=== PATIENT | male | born 1995 | race Caucasian/White ===

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

== ENCOUNTER 2017-04-21 21:15 | Emergency (ER) | payer BC, OTHER ==
[2017-04-21] MEDS ORDERED: Ibuprofen TAB* 600 MG PO ONE (21:28)
--- NOTE | 2017-04-21 21:34 | UC ---
Hip/Pelvis Pain - HPI Summary HPI Summary: 21 yo male injured left hip today around 1 pm doing a flip snow boarding marked pain with wt bearing denies other injury - History Of Current Complaint Chief Complaint: UCLowerExtremity Stated Complaint: HIP INJURY Time Seen by Provider: 04/21/17 21:22 Hx Obtained From: Patient Onset/Duration: Sudden Onset, Lasting Hours Timing: Constant Severity Initially: Moderate Severity Currently: Severe Pain Intensity: 10 Pain Scale Used: 0-10 Numeric Location: Discrete At: Character Of Pain: Aching, Throbbing, Spasmodic Aggravating Factor(s): Movement, Weight Bearing Alleviating Factor(s): Nothing Associated Signs And Symptoms: Positive: Negative - Allergies/Home Medications Allergies/Adverse Reactions: Allergies Allergy/AdvReac Type Severity Reaction Status Date / Time No Known Allergies Allergy Verified 04/21/17 21:23 Home Medications: Home Medications NK [No Home Medications Reported] 04/21/17 [History Confirmed 04/21/17] PMH/Surg Hx/FS Hx/Imm Hx Previously Healthy: Yes Other History Of: Negative For: Anticoagulant Therapy - Surgical History Surgical History: Yes Surgery Procedure, Year, and Place: Tonsilectomy and Adenoidectomy, Ear tubes for 2 years as a child,CIRCUMCISION. WISDOM TEETH - Family History Known Family History: Positive: Other - mental health/drug dependence Negative: Cardiac Disease, Hypertension, Diabetes - Social History Alcohol Use: Rare Substance Use Type: Marijuana Smoking Status (MU): Never Smoked Tobacco - Immunization History Vaccination Up to Date: Yes Review of Systems Constitutional: Negative Skin: Negative Eyes: Negative ENT: Negative Respiratory: Negative Cardiovascular: Negative Gastrointestinal: Negative Genitourinary: Negative Motor: Negative Neurovascular: Negative Musculoskeletal: Arthralgia, Myalgia Neurological: Negative Psychological: Negative Is Patient Immunocompromised?: No All Other Systems Reviewed And Are Negative: Yes Physical Exam Triage Information Reviewed: Yes Appearance: Well-Appearing, No Pain Distress, Well-Nourished Vital Signs: Initial Vital Signs Temp 97.4 F 04/21/17 21:20 Pulse 90 04/21/17 21:20 Pulse Ox 100 04/21/17 21:20 Vital Signs Reviewed: Yes Eyes: Positive: Conjunctiva Clear ENT: Positive: Hearing grossly normal, Nasal drainage Neck: Positive: Supple, Nontender, No Lymphadenopathy Respiratory: Positive: Chest non-tender, Lungs clear, Normal breath sounds, No respiratory distress, No accessory muscle use Cardiovascular: Positive: RRR, No Murmur Abdomen Description: Positive: Nontender, No Organomegaly, Soft Musculoskeletal: Positive: Other: - see image Neurological: Positive: Alert Psychological Exam: Normal Skin Exam: Normal Diagnostics - Radiology No standard instances Xray Interpretation: No Acute Changes Radiology Interpretation Completed By: Radiologist Hip Injury Course/Dx - Differential Dx/Diagnosis Provider Diagnoses: left hip contusion Discharge - Discharge Plan Condition: Stable Disposition: HOME Patient Education Materials: Hip Pain (ED) Referrals: [facility] [place] [Outside] - As Soon As Possible Additional Instructions: rest ice advil or aleve for pain use your crutches with non wt bearing until rechecked no fracture seen on XR Images Front/Back of Body, Lg ([place]): 1 - tender
[2017-04-21 21:38] VITALS: BP 121/69
--- NOTE | 2017-04-21 22:02 | RAD ---
Indication: Limited movement LEFT leg following snowboard injury. Comparison: April 30, 2016 CT. Technique: Supine AP pelvis and AP and frog-leg lateral views LEFT hip. Report: The LEFT hip is normally located. No LEFT proximal femur or pelvic fracture or pelvic joint diastases. Unremarkable soft tissue contours. IMPRESSION: Negative radiographic exam of the LEFT hip. Correlate with clinical assessment and consider follow-up MRI for further evaluation if deemed appropriate.
== END 2017-04-21 22:09 | disposition home or self-care (01) ==
LOC: UCEAST 21:15
DX: S70.02XA Contusion of left hip, initial encounter (principal); X58.XXXA Exposure to other specified factors, initial encounter; Y93.23 Activity, snow (alpine) (downhill) skiing, snowboarding, sledding, tobogganing and snow tubing; Y92.9 Unspecified place or not applicable; F12.90 Cannabis use, unspecified, uncomplicated
CPT/HCPCS: 99211; A9270-GY; G0463

== ENCOUNTER 2017-07-16 08:49 | Emergency (ER) | payer BC, OTHER ==
[2017-07-16 09:13] VITALS: BP 105/80
--- NOTE | 2017-07-16 10:34 | RAD ---
INDICATION: Right hand injury. TECHNIQUE: 4 views of the right hand were obtained. FINDINGS: The bones are in normal alignment. No fracture is seen. Joint spaces appear maintained. IMPRESSION: NO EVIDENCE FOR FRACTURE, IF THE PATIENT'S SYMPTOMS PERSIST RECOMMEND FOLLOW-UP IMAGING.
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
== END 2017-07-16 11:05 | disposition home or self-care (01) ==
LOC: UCEAST 08:49
DX: S63.91XA Sprain of unspecified part of right wrist and hand, initial encounter (principal); S06.0X9A Concussion with loss of consciousness of unspecified duration, initial encounter; Z72.0 Tobacco use; V44.5XXA Car driver injured in collision with heavy transport vehicle or bus in traffic accident, initial encounter; Y92.9 Unspecified place or not applicable
CPT/HCPCS: 99212; G0463

== ENCOUNTER 2018-07-27 07:44 | Emergency (ER) | payer BC, OTHER ==
[2018-07-27 07:56] VITALS: BP 142/79
--- NOTE | 2018-07-27 08:08 | UC ---
Upper Extremity HPI - HPI Summary HPI Summary: Patient is a 22 year old gentleman, who present today to the urgent care right forearm pain after he slipped and fell on his driveway half hour ago prior to arrival. Pain is mainly located on the dorsal aspect of the mid forearm, there is a small abrasion. Tetanus shot 2 years ago Denies any wrist pain, elbow pain. Also reports some left shoulder pain on the anterolateral aspect and has full range of motion. Denies any other pain anywhere else. - History of Current Complaint Chief Complaint: UCUpperExtremity Stated Complaint: LT ARM INJURY Time Seen by Provider: 07/27/18 07:54 Hx Obtained From: Patient Pain Intensity: 3 - Allergies/Home Medications Allergies/Adverse Reactions: Allergies Allergy/AdvReac Type Severity Reaction Status Date / Time No Known Allergies Allergy Verified 07/27/18 07:56 PMH/Surg Hx/FS Hx/Imm Hx - Additional Past Medical History Additional PMH: Bicuspid aortic valve Previously Healthy: Yes Other History Of: Negative For: Anticoagulant Therapy - Surgical History Surgical History: Yes Surgery Procedure, Year, and Place: Tonsilectomy and Adenoidectomy, Ear tubes for 2 years as a child,CIRCUMCISION. WISDOM TEETH, R shoulder tendon repair - Family History Known Family History: Positive: Unknown - PT ADOPTED - UNSURE OF FAM HX, Other - mental health/drug dependence Negative: Cardiac Disease, Hypertension, Diabetes - Social History Alcohol Use: Rare Substance Use Type: Marijuana Smoking Status (MU): Light Every Day Tobacco Smoker Type: eCigarettes Amount Used/How Often: 1 pk/week - Immunization History Vaccination Up to Date: Yes Review of Systems All Other Systems Reviewed And Are Negative: Yes Constitutional: Positive: Negative Skin: Positive: Other - Smaller left forearm abrasion Eyes: Positive: Negative ENT: Positive: Negative Respiratory: Positive: Negative Cardiovascular: Positive: Negative Gastrointestinal: Positive: Negative Genitourinary: Positive: Negative Motor: Positive: Negative Neurovascular: Positive: Negative Musculoskeletal: Positive: Other: - Pain in left mid forearm Neurological: Positive: Negative Psychological: Positive: Negative Is Patient Immunocompromised?: No Physical Exam - Summary Physical Exam Summary: Physical Exam: Const: Appears well. No signs of apparent distress present. Alert and oriented x 3. Musculo: Walks with a normal gait. Head/Face: Atraumatic, normocephalic on inspection. Eyes: EOMI and PERRLA in both eyes. Conjunctivae clear. No discharge noted ENT: Hearing normal Respiratory: Respirations are unlabored. Lungs clear CVS: Regular rate and Rhythm, S1S2 normal , no murmurs identified. Extremities: Peripheral circulation is grossly normal. Pulses 2+ Abdomen : Soft non tender Skin: No rash. Neuro: Cranial nerves II to XII intact, motor and sensory intact. DTR Intact bilaterally. Mood is normal. Affect is normal. Left forearm: Small scratch/abrasion, no drainage or bleeding on the dorsal aspect. There is tenderness to palpation on the ulnar aspect in the mid forearm. 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 Full range of motion which is pain-free Strength 5/5 Triage Information Reviewed: Yes Vital Signs: Initial Vital Signs Temp 98.7 F 07/27/18 07:52 Pulse 100 07/27/18 07:52 Resp 16 07/27/18 07:52 BP 142/79 07/27/18 07:52 Pulse Ox 98 07/27/18 07:52 Vital Signs Reviewed: Yes Diagnostics - Radiology No standard instances Radiology Interpretation Completed By: Radiologist - Left forearm x-ray: NO ACUTE OSSEOUS INJURY. IF SYMPTOMS PERSIST, RECOMMEND REPEAT IMAGING. Upper Extremity Course/Dx - Course Course Of Treatment: During the visit today, we obtained x-rays of left forearm which was negative for any fracture and he declined for the left shoulder x-ray. Was given 1 dose of ibuprofen for pain relief We discussed the findings consistent with a contusion and further plan. Patient expressed understanding . - Differential Dx/Diagnosis Provider Diagnosis: Contusion of forearm, left Discharge - Sign-Out/Discharge Documenting (check all that apply): Patient Departure All imaging exams completed and their final reports reviewed: Yes - Discharge Plan Condition: Stable Disposition: HOME Patient Education Materials: Contusion in Adults (ED) Referrals: Ugo Wu MD [Primary Care Provider] - 1 Week Additional Instructions: Take ibuprofen as needed for pain control and swelling . Ice 15 minutes at a time, 3-4 times a day. Follow with primary care provider within a week. Patients blood pressure slightly high in Urgent care today , plan follow up with PCP for better control return in 4 weeks. Return to Urgent care / ER if symptoms get worse. - Billing Disposition and Condition Condition: STABLE Disposition: Home
[2018-07-27] MEDS ORDERED: Ibuprofen TAB* 600 MG PO ONE (08:13)
== END 2018-07-27 08:53 | disposition home or self-care (01) ==
LOC: UCEAST 07:44
DX: S50.11XA Contusion of right forearm, initial encounter (principal); F17.290 Nicotine dependence, other tobacco product, uncomplicated; W19.XXXA Unspecified fall, initial encounter; Y92.9 Unspecified place or not applicable
CPT/HCPCS: 99212; A9270-GY; G0463

== ENCOUNTER 2018-08-14 11:44 | Emergency (ER) | payer BC ==
[2018-08-14 11:55] VITALS: BP 127/82
--- NOTE | 2018-08-14 12:06 | UC ---
Skin Complaint HPI - HPI Summary HPI Summary: itchy rash x 5 days rash is on his arms bilaterally , his back and both lower leg and feet very itchy and small bumps no fever, no chills, , new soap , detergent, no new food or drinks - History of Current Complaint Chief Complaint: UCRash Time Seen by Provider: 08/14/18 11:50 Stated Complaint: SKIN COMPLAINT Hx Obtained From: Patient Onset/Duration: Gradual Onset, Lasting Days - 5, Still Present Timing: Constant Onset Severity: Moderate Current Severity: Moderate Pain Intensity: 7 Location: Other - arms, lower legs, back Character: Pruritus, Redness Aggravating Factor(s): Nothing Alleviating Factor(s): Nothing Associated Signs & Symptoms: Negative: Nausea, Vomiting, Fever, Chills, Tenderness, Red Streaks - Allergy/Home Medications Allergies/Adverse Reactions: Allergies Allergy/AdvReac Type Severity Reaction Status Date / Time No Known Allergies Allergy Verified 08/14/18 11:54 Home Medications: Home Medications Steroid Cream 08/14/18 [History] PMH/Surg Hx/FS Hx/Imm Hx Previously Healthy: Yes Other History Of: Negative For: Anticoagulant Therapy - Surgical History Surgical History: Yes Surgery Procedure, Year, and Place: Tonsilectomy and Adenoidectomy, Ear tubes for 2 years as a child,CIRCUMCISION. WISDOM TEETH, R shoulder tendon repair - Family History Known Family History: Positive: Unknown - PT ADOPTED - UNSURE OF FAM HX, Other - mental health/drug dependence Negative: Cardiac Disease, Hypertension, Diabetes - Social History Alcohol Use: Rare Substance Use Type: Marijuana Smoking Status (MU): Light Every Day Tobacco Smoker Type: eCigarettes Amount Used/How Often: 1 pk/week - Immunization History Vaccination Up to Date: Yes Review of Systems All Other Systems Reviewed And Are Negative: Yes Constitutional: Positive: Negative Skin: Positive: Rash Eyes: Positive: Negative ENT: Positive: Negative Respiratory: Positive: Negative Is Patient Immunocompromised?: No Physical Exam Triage Information Reviewed: Yes Appearance: Well-Appearing, No Pain Distress, Well-Nourished Vital Signs: Initial Vital Signs Temp 98.7 F 08/14/18 11:48 Pulse 79 08/14/18 11:48 Resp 18 08/14/18 11:48 BP 127/82 08/14/18 11:48 Pulse Ox 100 08/14/18 11:48 Vital Signs Reviewed: Yes Eye Exam: Normal Eyes: Positive: Conjunctiva Clear ENT: Positive: Normal ENT inspection, Hearing grossly normal, Pharynx normal Neck: Positive: Supple, Nontender, No Lymphadenopathy Respiratory: Positive: Chest non-tender, Lungs clear, Normal breath sounds Cardiovascular: Positive: RRR, No Murmur, Pulses Normal Skin: Positive: Rashes - papular rash on bilateral arms and elbow, back and lower leg and feet, itchy Course/Dx - Diagnoses Provider Diagnosis: Insect bite Discharge - Sign-Out/Discharge Documenting (check all that apply): Patient Departure All imaging exams completed and their final reports reviewed: No Studies - Discharge Plan Condition: Stable Disposition: HOME Prescriptions: Triamcinolone 0.1% CREAM (NF) [Kenalog 0.1% Cream (NF)] 1 applic TOPICAL BID # 60 gm Patient Education Materials: Insect Bite or Sting (ED) Referrals: Ugo Wu MD [Primary Care Provider] - If Needed - Billing Disposition and Condition Condition: STABLE Disposition: Home
== END 2018-08-14 12:18 | disposition home or self-care (01) ==
LOC: UCEAST 11:44
DX: S50.362A Insect bite (nonvenomous) of left elbow, initial encounter (principal); S50.361A Insect bite (nonvenomous) of right elbow, initial encounter; S20.469A Insect bite (nonvenomous) of unspecified back wall of thorax, initial encounter; S80.862A Insect bite (nonvenomous), left lower leg, initial encounter; S80.861A Insect bite (nonvenomous), right lower leg, initial encounter; S90.869A Insect bite (nonvenomous), unspecified foot, initial encounter; W57.XXXA Bitten or stung by nonvenomous insect and other nonvenomous arthropods, initial encounter; Y93.9 Activity, unspecified; F17.210 Nicotine dependence, cigarettes, uncomplicated
CPT/HCPCS: 99212; G0463

== ENCOUNTER 2018-10-22 11:48 | Emergency (ER) | payer BC, OTHER ==
[2018-10-22] MEDS ORDERED: Famotidine IV* 10 MG/ML 2 ML (20 mg) ONE (11:53)
[2018-10-22] MEDS ORDERED: methylPREDNISolone 125 MG* 2 ML VIAL IV ONE (11:58)
[2018-10-22] MEDS ORDERED: diPHENhydraMINE IV* 50 MG/ML 1 ml VIAL (BENADRYL) IV ONE (11:58)
[2018-10-22] MEDS ORDERED: Famotidine IV* 10 MG/ML 2 ML (20 mg) IV SLOW PU ONE (11:58)
[2018-10-22] MEDS ORDERED: NS 0.9% 1000 ML** 1,000 ML IV ONE (11:59)
--- NOTE | 2018-10-22 12:15 | UC ---
UC General HPI - HPI Summary HPI Summary: Pt presents to urgent care with concern of an allergic reaction after being stung by "about 10 bees at work." About 30 min CAN CAPPER. Pt states feels lightheaded , mild sob and tightness in chest. No meds taken. No hives, no difficulty with speaking Pt drove self to . no meds taken MEdictions reviewed this visit - History of Current Complaint Stated Complaint: ALLERIGIC REACTION Hx Obtained From: Patient - Allergy/Home Medications Allergies/Adverse Reactions: Allergies Allergy/AdvReac Type Severity Reaction Status Date / Time No Known Allergies Allergy Verified 10/22/18 12:30 PMH/Surg Hx/FS Hx/Imm Hx Previously Healthy: Yes Other History Of: Negative For: Anticoagulant Therapy - Surgical History Surgical History: Yes Surgery Procedure, Year, and Place: Tonsilectomy and Adenoidectomy, Ear tubes for 2 years as a child,CIRCUMCISION. WISDOM TEETH, R shoulder tendon repair - Family History Known Family History: Positive: Unknown - PT ADOPTED - UNSURE OF FAM HX, Other - mental health/drug dependence, Non-Contributory Negative: Cardiac Disease, Hypertension, Diabetes - Social History Occupation: Employed Full-time Lives: With Family Alcohol Use: Rare Substance Use Type: Marijuana Smoking Status (MU): Light Every Day Tobacco Smoker Type: eCigarettes Amount Used/How Often: 1 pk/week - Immunization History Vaccination Up to Date: Yes Review of Systems All Other Systems Reviewed And Are Negative: Yes Constitutional: Positive: Negative Skin: Positive: Negative Eyes: Positive: Negative ENT: Positive: Negative Respiratory: Positive: Shortness Of Breath - mild Cardiovascular: Positive: Chest Pain - tightness Gastrointestinal: Positive: Negative. Negative: Vomiting, Nausea Genitourinary: Positive: Negative Motor: Positive: Negative Neurovascular: Positive: Negative Physical Exam - Summary Physical Exam Summary: Vital Signs Reviewed: Yes A+Ox3, speaking full, easy sentences, pallor Eyes: Conjunctiva Clear, DENISSE. EOM intact and full ENT: Hearing grossly normal TM x 2 clear, mmoist, uvula midline, no exudate, no erythema, no intraoral edema, Neck: Positive: Supple Respiratory: Positive: No respiratory distress, No accessory muscle use + CTA throughout no w/r speaking easy sentences, no stridor Cardiovascular: RRR nl s1, s2 no m/r CBT <2 sec abd soft + BS nt/nd no guarding, no distension Musculoskeletal Exam: DELGADO x 4 without difficulty Strength Intact, ROM Intact Neurological: Positive: Alert, + sensation throughout Psychological: Positive: Normal Response To Family Skin: Positive: no rash, no ecchymosis Triage Information Reviewed: Yes Re-Evaluation - Re-Evaluation First Eval Re-Evaluation Time: 12:02 Change: Improved Comment: PT states feels a little better - vss. close reassessment Second Eval Re-Evaluation Time: 12:31 Change: Improved - Pt states feeling well up to restroom x 2 mom at bedside reviewed treatment plan agreement with plan Course/Dx - Course Course Of Treatment: Patient presents to urgent care reporting he feels slightly short of breath, has slight chest tightness, and feels lightheaded after being stung by several bees at work. Patient not take any medication prior to arrival. Patient is not having any difficulty with speaking or facial swelling. No hives. No medications taken prior to arrival. Vital signs are stable. On exam patient is slightly pale but no other focal findings. We'll place an IV give solumedrol , benadryl, pepcid Will closely monitor/reassess - Diagnoses Provider Diagnosis: Allergic reaction to bee sting Discharge - Sign-Out/Discharge Documenting (check all that apply): Patient Departure All imaging exams completed and their final reports reviewed: No Studies - Discharge Plan Condition: Stable Disposition: HOME Prescriptions: EPINEPHrine [Epipen 2-Melvin] 0.3 mg IJ ONCE #1 auto.injct Famotidine TAB* [Pepcid 20 MG TAB*] 20 mg PO DAILY #12 tab predniSONE TAB* [Deltasone TAB*] 50 mg PO DAILY #5 tab Patient Education Materials: General Allergic Reaction (ED) Forms: *Gen. Provider Communication, *Work Release Referrals: Ugo Wu MD [Primary Care Provider] - Additional Instructions: - Take prednisone exactly as prescribed until gone - starting tomorrow - Okay to take Benadryl (1-2 tablets) every 6 hours as needed. This medication may cause drowsiness - do NOT drive, operate machinery or drink alcohol while taking Benadryl -Take pepcid as prescribed - 2 times daily for 7 days -Avoid getting over heated (hot showers, hot tubs, exercise) for at least 48 hours - Try to avoid aspirin, NSAIDs (Motrin, Aleve, Naprosyn) for 2-3 days - Okay to apply cool compresses to the area of injury -Contact your doctor or return here with questions or concerns - Billing Disposition and Condition Condition: STABLE Disposition: Home
[2018-10-22 12:30] VITALS: BP 128/72
== END 2018-10-22 12:52 | disposition home or self-care (01) ==
LOC: UCEAST 11:48
DX: T63.441A Toxic effect of venom of bees, accidental (unintentional), initial encounter (principal); Y92.9 Unspecified place or not applicable; F17.210 Nicotine dependence, cigarettes, uncomplicated
CPT/HCPCS: 96374; 96375; 99211; G0463; J1200; J2930

== ENCOUNTER 2019-07-12 12:31 | Emergency (ER) | payer BC, OTHER ==
[2019-07-12 13:17] VITALS: BP 128/83
--- NOTE | 2019-07-12 13:52 | UC ---
FLU HPI - HPI Summary HPI Summary: 23-year-old male presenting with father for complaint of "feeling like shit" x3 days. Patient states that his "mom made him come here." States "some congestion and I threw up once yesterday." Denies n/v since. Denies abdominal pain and diarrhea. Denies cough and sore throat. Notes chills but no fever. Notes normal appetite and fluid intake. Taking aleve for symptom relief. - History of Current Complaint Chief Complaint: UCGeneralIllness Stated Complaint: FLU SYMPTOMS Hx Obtained From: Patient Pain Intensity: 4 Pain Scale Used: 0-10 Numeric - Allergy/Home Medications Allergies/Adverse Reactions: Allergies Allergy/AdvReac Type Severity Reaction Status Date / Time No Known Allergies Allergy Verified 07/12/19 13:17 Home Medications: Home Medications EPINEPHrine [Epipen 2-Melvin] 0.3 mg IJ ONCE #1 auto.injct 10/22/18 [Rx Confirmed 07/12/19] Calcium Carbonate CHEW TAB* [Tums*] 1,000 mg PO BID 07/12/19 [History Confirmed 07/12/19] Dm/PE/Acetaminophen/Doxylamine [Vicks Dayquil-Nyquil Cold-Flu] 1 each PO Q6H 06/01 [History Confirmed 07/12/19] PMH/Surg Hx/FS Hx/Imm Hx Previously Healthy: Yes Other History Of: Negative For: Anticoagulant Therapy - Surgical History Surgical History: Yes Surgery Procedure, Year, and Place: Tonsilectomy and Adenoidectomy, Ear tubes for 2 years as a child,CIRCUMCISION. WISDOM TEETH, R shoulder tendon repair - Family History Known Family History: Positive: Unknown - PT ADOPTED - UNSURE OF FAM HX, Other - mental health/drug dependence, Non-Contributory Negative: Cardiac Disease, Hypertension, Diabetes - Social History Alcohol Use: Weekly Substance Use Type: Marijuana Smoking Status (MU): Light Every Day Tobacco Smoker Type: eCigarettes Amount Used/How Often: 1 pk/week - Immunization History Vaccination Up to Date: Yes Review of Systems All Other Systems Reviewed And Are Negative: Yes Constitutional: Positive: Chills, Fatigue ENT: Positive: Sinus Congestion Respiratory: Positive: Negative Cardiovascular: Positive: Negative Gastrointestinal: Positive: Vomiting - x1, Nausea. Negative: Abdominal Pain, Diarrhea Genitourinary: Positive: Negative Musculoskeletal: Positive: Myalgia Neurological/Mental Status: Positive: Negative Physical Exam - Summary Physical Exam Summary: Vital Signs Reviewed: Yes A+Ox3, no distress, well-appearing Eyes: Conjunctiva Clear ENT: Hearing grossly normal, TM x 2 clear, moist, uvula midline, no exudate, no erythema Neck: Positive: Supple Respiratory: Positive: No respiratory distress, No accessory muscle use + CTA throughout no w/r Cardiovascular: RRR nl s1, s2 no m/r Abd: soft + BS nt/nd no guarding Musculoskeletal Exam: DELGADO x 4 without difficulty Neurological: Positive: Alert Psychological: Positive: age appropriate behavior Skin: Positive: no rash, no ecchymosis Vital Signs: Initial Vital Signs Temp 97.4 F 07/12/19 13:12 Pulse 92 07/12/19 13:12 Resp 16 07/12/19 13:12 BP 128/83 07/12/19 13:12 Pulse Ox 100 07/12/19 13:12 Lab Results 07/12/19 07/12/19 Range/Units 13:42 13:45 Influenza A (Rapid) Negative (Negative) Influenza B (Rapid) Negative (Negative) Group A Strep Rapid Negative (Negative) Flu Course/Dx - Course Course Of Treatment: Negative rapid strep and flu tests. Discussed viral illness patient and father and instructed to continue with symptomatic treatment. Patient declined treatment with Zofran for nausea. Instructed to follow up with PCP if symptoms persist into go to ED with any new or worsening symptoms. Patient voiced understanding and agreed with the treatment plan. - Differential Dx/Diagnosis Differential Diagnosis/HQI/PQRI: Bronchitis, Influenza, Upper Respiratory Infection Provider Diagnosis: Flu-like symptoms Discharge ED - Sign-Out/Discharge Documenting (check all that apply): Patient Departure All imaging exams completed and their final reports reviewed: No Studies - Discharge Plan Condition: Stable Disposition: HOME Patient Education Materials: Viral Syndrome (ED) Referrals: Ugo Wu MD [Primary Care Provider] - If Needed Additional Instructions: Your strep and flu tests were negative today. Continue to get plenty of rest and fluids. You may take over the counter cold and flu medication as directed for symptom relief. Follow up with your primary care provider if symptoms do not improve within 7 days. - Billing Disposition and Condition Condition: STABLE Disposition: Home
[2019-07-12 13:56] LABS: Influenza A Molecular Negative (Negative); Influenza B Molecular Negative (Negative)
== END 2019-07-12 14:30 | disposition home or self-care (01) ==
LOC: UCEAST 12:31
DX: R11.2 Nausea with vomiting, unspecified (principal); R09.81 Nasal congestion; R53.83 Other fatigue; M79.10 Myalgia, unspecified site; F17.290 Nicotine dependence, other tobacco product, uncomplicated
CPT/HCPCS: 87651; 99211; G0463